=== PATIENT | female | born 1950 | race Hispanic/Latino ===

== ENCOUNTER 2018-11-19 14:27 | Emergency (ER) | payer BC ==
[2018-11-19 14:38] VITALS: BMI 24.5
[2018-11-19 14:44] VITALS: RESP 18; TEMP 97.9; O2SAT 98
[2018-11-19] MEDS ORDERED: Naproxen 550 mg Tab PO STA (16:52)
--- NOTE | 2018-11-19 16:55 | C.PDOC ---
History Of Present Illness 67 year old female sent to ED by customer energy specialist for evaluation of right lower leg redness and swelling that began 4 days ago. Patient states that it originally began in her foot and she initially though it was gout. However, the redness and swelling began traveling up her right leg. She has a PMHX of breast cancer and takes Tamoxifen. Patient denies fever, injuries, SOB, and chest pain. Time Seen by Provider: 11/19/18 15:28 Chief Complaint (Nursing): Lower Extremity Problem/Injury History Per: Patient History/Exam Limitations: no limitations Onset/Duration Of Symptoms: Days (4) Current Symptoms Are (Timing): Still Present Past Medical History Reviewed: Historical Data, Nursing Documentation, Vital Signs Vital Signs: Last Vital Signs Temp 97.9 F 11/19/18 14:38 Pulse 80 11/19/18 14:38 Resp 18 11/19/18 14:38 BP 135/73 11/19/18 14:38 Pulse Ox 98 11/19/18 14:38 - Medical History PMH: COPD Other PMH: Breast cancer Surgical History: Tonsillectomy - [facility] Procedures CLOSED ENDOSCOPIC BIOPSY OF LARGE INTESTINE (06/07/05) CLOSED [ENDOSCOPY] BIOPSY OF SMALL INTEST (06/07/05) DX ULTRASOUND-DIGESTIVE (12/23/06) ENDOSC POLYPECTOMY OF LG INTEST (04/13/03) ENDOSCOPIC BIOPSY OF RECTUM (04/13/03) ESOPHAGOGASTRODUODENOSCOPY [EGD] W/CLOSED BIOPSY (12/23/06) INJECT/INFUSE NEC (10/10/05) Family History: States: Unknown Family Hx - Social History Hx Alcohol Use: Yes Hx Substance Use: No - Immunization History Hx Tetanus Toxoid Vaccination: No Hx Influenza Vaccination: Yes Hx Pneumococcal Vaccination: Yes Review Of Systems Constitutional: Negative for: Fever, Chills, Weakness Cardiovascular: Negative for: Chest Pain Respiratory: Negative for: Shortness of Breath Musculoskeletal: Positive for: Leg Pain (right leg swelling and redness) Neurological: Negative for: Weakness, Numbness, Dizziness Physical Exam - Physical Exam Appears: Non-toxic, Other (mild pain) Skin: Normal Color, Warm, Dry Head: Atraumatic, Normacephalic Neck: Normal ROM, Supple Chest: Symmetrical, No Deformity Cardiovascular: Rhythm Regular, No Murmur Respiratory: No Accessory Muscle Use, No Rales, No Rhonchi, No Wheezing Gastrointestinal/Abdominal: Soft, No Tenderness Extremity: Swelling (right lower extremity; erythema and tenderness) Pulses: Left Dorsalis Pedis: Normal, Right Dorsalis Pedis: Normal Neurological/Psych: Oriented x3, Normal Speech, Normal Cognition ED Course And Treatment O2 Sat by Pulse Oximetry: 98 (in RA) Progress Note: Venous Doppler of the right leg ordered for patient. Patient given Naproxen PO AND Clindamycin PO. Re-evaluation. Patient feels better. Discussed results and plan with patient who expresses understanding. All q uestions answered and there is agreement with the plan to discharge home with instructions. Patient stable for discharge. Return if symptoms persist or worsen. Disposition Counseled Patient/Family Regarding: Diagnosis, Need For Followup, Rx Given - Disposition Referrals: [facility] [Outside] Disposition: HOME/ ROUTINE Disposition Time: 17:00 Condition: STABLE Additional Instructions: FOLLOW UP WITH YOUR DOCTOR IN 1-2 DAYS USE MEDICATIONS DIRECTED RETURN TO ER IF YOUR SYMPTOMS WORSEN Prescriptions: Clindamycin [Cleocin] 300 mg PO TID #21 cap Naproxen 375 mg PO BID PRN #20 tablet PRN Reason: pain traMADol [Ultram] 50 mg PO BID PRN #12 tab PRN Reason: pain Instructions: Cellulitis (Skin Infection), Adult (DC) Forms: [employer] (Yi) Print Language: GUATEMALAN - Clinical Impression Clinical Impression: Cellulitis of right leg - Scribe Statement The provider has reviewed the documentation as recorded by the Scribe (Nikia Jenkins) All medical record entries made by the Scribe were at my direction and personally dictated by me. I have reviewed the chart and agree that the record accurately reflects my personal performance of the history, physical exam, medical decision making, and the department course for this patient. I have also personally directed, reviewed, and agree with the discharge instructions and disposition.
[2018-11-19] MEDS ORDERED: Naproxen 550 mg Tab PO ONE (17:02)
[2018-11-19 17:03] VITALS: BP 132/76; PULSE 68
--- NOTE | 2018-11-20 12:50 | VASCLAB ---
Date of service: 11/19/2018 PROCEDURE: Right Lower Extremity Venous Duplex Exam. HISTORY: RIGHT LEG SWELLING, R/O DVT PRIORS: None. TECHNIQUE: Right common femoral, femoral, popliteal and posterior tibial, peroneal and great saphenous veins were evaluated. Flow was assessed with color Doppler, compressibility, assessment of phasic flow and augmentation response. Report prepared by Wesly Sifuentes, POONAM, RVT FINDINGS: RIGHT: 1. Common Femoral Vein: 1.1. Compressibility - Fully compressible: Thrombus - None: Flow - Phasic: Augmentation -Normal: Reflux - None. 2. Femoral Vein: 2.1. Compressibility - Fully compressible: Thrombus - None: Flow - Phasic: Augmentation -Normal: Reflux - None. 3. Popliteal Vein: 3.1. Compressibility - Fully compressible: Thrombus - None: Flow - Phasic: Augmentation -Normal: Reflux - None. 4. Posterior Tibial Vein: 4.1. Compressibility - Fully compressible: Thrombus - None: Flow - Phasic: Augmentation -Normal: Reflux - None. 5. Peroneal Vein: 5.1. Compressibility - Fully compressible: Thrombus - None: Flow - Phasic: Augmentation -Normal: Reflux - None. 6. Great Saphenous Vein: 6.1. Compressibility - Fully compressible: Thrombus -None: Flow - Phasic: Augmentation - Normal: Reflux - None. OTHER FINDINGS: IMPRESSION: No evidence of deep or superficial vein thrombosis of the right lower extremity with excellent venous flow. Normal valve function noted of the right side. Normal venous flow noted in the left common femoral vein.
== END 2018-11-19 17:03 | disposition home or self-care (01) ==
LOC: C.ER 14:27
DX: L03.115 Cellulitis of right lower limb (principal); J44.9 Chronic obstructive pulmonary disease, unspecified; Z85.3 Personal history of malignant neoplasm of breast